=== PATIENT | male | born 1965 | race Caucasian/White ===

== ENCOUNTER 2019-06-01 11:57 | Observation (INO) ==
[2019-06-01] MEDS ORDERED: LIDOCAINE 1% 20 ML VIAL ONE (12:09)
[2019-06-01] MEDS ORDERED: hydrALAZINE 20 MG/1 ML VIAL IV PRN (12:10)
[2019-06-01] MEDS ORDERED: ZALEPLON 5 MG CAPSULE PO PRN (12:10)
[2019-06-01] MEDS ORDERED: diphenhydrAMINE CAP 25 MG CAPSULE PO PRN (12:10)
[2019-06-01] MEDS ORDERED: SIMETHICONE CHEW 125 MG TABLET PO PRN (12:10)
[2019-06-01] MEDS ORDERED: CALCIUM CARBONATE CHEW 500 MG TABLET PO PRN (12:10)
[2019-06-01] MEDS ORDERED: LACTULOSE 20 GM/30 ML UDCUP PO PRN (12:10)
[2019-06-01] MEDS ORDERED: BISACODYL 5 MG TABLET PO PRN (12:10)
[2019-06-01] MEDS ORDERED: POTASSIUM CHLORIDE 20 MEQ TABLET PO PRN (12:10)
[2019-06-01] MEDS ORDERED: ALUMINUM/MAGNES/SIMETH MAX STR 30 ML UDCUP PO PRN (12:10)
[2019-06-01] MEDS ORDERED: ONDANSETRON 4 MG/2 ML VIAL IV PRN (12:10)
[2019-06-01] MEDS ORDERED: NICOTINE 21 MG/24 HR PATCH TRANSDERM PRN (12:10)
[2019-06-01] MEDS ORDERED: guaiFENesin/DM ER 600-30 MG TABLET PO PRN (12:10)
[2019-06-01] MEDS ORDERED: MAGNESIUM SULF RIDER 4 GM in PREMIX 1 EACH IV PRN (12:10)
[2019-06-01] MEDS ORDERED: MORPHINE 4 MG/1 ML VIAL IV PRN (12:10)
[2019-06-01] MEDS ORDERED: MAGNESIUM SULF RIDER 2 GM in PREMIX 1 EACH IV PRN (12:10)
[2019-06-01] MEDS ORDERED: ACETAMINOPHEN 325 MG TABLET PO PRN (12:10)
[2019-06-01 12:16] LABS: Basophils # 0.1 10*3/uL (0.0-0.2); Basophils % 0.6 % (0.0-0.8); Eosinophils # 0.1 10*3/uL (0.0-0.87); Eosinophils % 0.8 % (0.00-10.9); Hematocrit 52.9 VOL% (42.0-52.0); Hemoglobin 17.7 GM/DL (14.0-18.0); Immature Granulocytes % 1.2 %; Immature Granulocytes Absolute 0.14 #; Lymphocytes % 8.7 % (21.2-54.2); Mean Corpuscular HGB Conc 33.5 GM/DL (32-36); Mean Corpuscular Volume 93.8 FL (87-102); Mean Platelet Volume 10.4 FL (9.6-12.0); Monocytes % 6.1 % (1.7-12.7); Neutrophils % 82.6 % (38.7-73.9); Platelet Count 210 T/CUMM (130-400); Red Blood Count 5.64 MC/CUMM (3.8-5.5); White Blood Count 11.5 T/CUMM (4-12)
[2019-06-01] MEDS ORDERED: HYDROmorphone 2 MG/1 ML VIAL ONE (12:22)
[2019-06-01] MEDS ORDERED: MIDAZOLAM 2 MG/2 ML VIAL ONE (12:23)
[2019-06-01 12:24] LABS: PT Patient Result 10.9 SECS (9.6-12.2)
[2019-06-01] MEDS ORDERED: ONDANSETRON 4 MG/2 ML VIAL ONE ×2 (12:26→13:44)
[2019-06-01] MEDS ORDERED: HEPARIN 5,000 UNIT/1 ML VIAL ONE (12:28)
[2019-06-01] MEDS ORDERED: TIROFIBAN 5,000 MCG/100 ML PREMIX IV ONE (12:33)
[2019-06-01 12:36] LABS: Albumin 3.8 G/DL (3.4-5.0); Bilirubin,Total 0.5 MG/DL (0.2-1.0); Calcium 8.6 MG/DL (8.5-10.1); Osmolality,Calculated 283.8 MOS/KG (273-304); Total Protein 7.1 G/DL (6.4-8.3)
[2019-06-01] MEDS ORDERED: GLUCAGON 1 MG VIAL IM PRN (12:37)
[2019-06-01] MEDS ORDERED: DEXTROSE 50% 25 GM/50 ML VIAL IV PRN (12:37)
[2019-06-01 12:39] LABS: Troponin I 0.296 NG/ML (0.00-0.045)
[2019-06-01] MEDS ORDERED: TIROFIBAN 5,000 MCG/100 ML PREMIX IV SCH (12:39)
[2019-06-01 12:46] LABS: Risk Ratio 4.36; VLDL CHOLESTEROL 21.8 MG/DL
[2019-06-01] MEDS ORDERED: TICAGRELOR 90 MG TABLET ONE (12:51)
[2019-06-01] MEDS ORDERED: LABETALOL 20 MG/4 ML SYRINGE IV ONE (12:54)
[2019-06-01] MEDS ORDERED: ALUM/MAG/SIMETH/LIDO VISC 1:1 30 ML BOTTLE PO ONE (13:59)
[2019-06-01] MEDS: ROSUVASTATIN 20 MG TABLET PO SCH (15:45)
[2019-06-01] MEDS: INSULIN LISPRO 100 UNIT/ML SUBCUT SCH ×2 (15:45→21:59)
[2019-06-01 18:33] LABS: CKMB % 7.2 %
[2019-06-01] MEDS: TICAGRELOR 90 MG TABLET PO SCH (20:34)
[2019-06-01] MEDS: clonazePAM 0.5 MG TABLET PO PRN (20:34)
[2019-06-01] MEDS: TERAZOSIN 2 MG CAPSULE PO SCH (20:35)
[2019-06-01] MEDS ORDERED: ATORVASTATIN 40 MG TABLET PO SCH (21:00)
[2019-06-01] MEDS ORDERED: ENOXAPARIN 40 MG/0.4 ML SYRINGE SUBCUT SCH (21:00)
[2019-06-01 21:20] LABS: CKMB % 7.4 %
[2019-06-01 21:23] LABS: Troponin I 7.58 NG/ML (0.00-0.045)
[2019-06-02 05:44] LABS: Basophils % 0.4 % (0.0-0.8); Eosinophils # 0.2 10*3/uL (0.0-0.87); Eosinophils % 2.1 % (0.00-10.9); Hematocrit 49.7 VOL% (42.0-52.0); Hemoglobin 16.3 GM/DL (14.0-18.0); Immature Granulocytes % 0.7 %; Immature Granulocytes Absolute 0.07 #; Lymphocytes # 1.5 10*3/uL (1.4-4.0); Lymphocytes % 15.3 % (21.2-54.2); Mean Corpuscular HGB Conc 32.8 GM/DL (32-36); Mean Corpuscular Volume 94.8 FL (87-102); Mean Platelet Volume 10.9 FL (9.6-12.0); Monocytes % 9.1 % (1.7-12.7); Neutrophils % 72.4 % (38.7-73.9); Platelet Count 191 T/CUMM (130-400); Red Blood Count 5.24 MC/CUMM (3.8-5.5); White Blood Count 9.5 T/CUMM (4-12)
[2019-06-02 06:29] LABS: CKMB % 7.8 %
[2019-06-02 06:35] LABS: Troponin I 7.22 NG/ML (0.00-0.045)
[2019-06-02 08:37] LABS: Calcium 8.2 MG/DL (8.5-10.1)
[2019-06-02] MEDS: buPROPion 75 MG TABLET PO SCH ×2 (08:52→21:09)
[2019-06-02] MEDS: TICAGRELOR 90 MG TABLET PO SCH ×2 (08:52→20:42)
[2019-06-02] MEDS: INSULIN LISPRO 100 UNIT/ML SUBCUT SCH ×4 (08:52→20:42)
[2019-06-02] MEDS: PANTOPRAZOLE 40 MG TABLET PO SCH (08:52)
[2019-06-02] MEDS: ASPIRIN EC 81 MG TABLET PO SCH (08:52)
[2019-06-02] MEDS ORDERED: lisinopriL 2.5 MG TABLET PO SCH ×2 (09:00)
[2019-06-02] MEDS ORDERED: carvediloL 3.125 MG TABLET PO SCH (09:00)
[2019-06-02] MEDS: ROSUVASTATIN 20 MG TABLET PO SCH (11:50)
[2019-06-02] MEDS: OLMESARTAN 5 MG TABLET PO SCH (13:17)
[2019-06-02] MEDS ORDERED: NICOTINE 21 MG/24 HR PATCH TRANSDERM PRN (18:50)
[2019-06-02] MEDS: carvediloL 6.25 MG TABLET PO SCH (20:42)
[2019-06-02] MEDS: TERAZOSIN 2 MG CAPSULE PO SCH (20:42)
[2019-06-02] MEDS: clonazePAM 0.5 MG TABLET PO PRN (20:42)
[2019-06-03 04:17] LABS: Basophils % 0.3 % (0.0-0.8); Eosinophils # 0.3 10*3/uL (0.0-0.87); Eosinophils % 2.5 % (0.00-10.9); Hematocrit 49.4 VOL% (42.0-52.0); Hemoglobin 16.3 GM/DL (14.0-18.0); Immature Granulocytes % 0.6 %; Immature Granulocytes Absolute 0.06 #; Lymphocytes # 1.5 10*3/uL (1.4-4.0); Lymphocytes % 15.4 % (21.2-54.2); Mean Corpuscular Volume 93.6 FL (87-102); Mean Platelet Volume 10.8 FL (9.6-12.0); Neutrophils % 70.2 % (38.7-73.9); Platelet Count 193 T/CUMM (130-400); Red Blood Count 5.28 MC/CUMM (3.8-5.5)
[2019-06-03 04:43] LABS: Calcium 8.7 MG/DL (8.5-10.1); Osmolality,Calculated 280.7 MOS/KG (273-304)
[2019-06-03 08:29] VITALS: BP 162/82
[2019-06-03] MEDS: TICAGRELOR 90 MG TABLET PO SCH (09:24)
[2019-06-03] MEDS: PANTOPRAZOLE 40 MG TABLET PO SCH (09:24)
[2019-06-03] MEDS: carvediloL 6.25 MG TABLET PO SCH (09:24)
[2019-06-03] MEDS: ROSUVASTATIN 20 MG TABLET PO SCH (09:24)
[2019-06-03] MEDS: OLMESARTAN 5 MG TABLET PO SCH (09:24)
[2019-06-03] MEDS: ASPIRIN EC 81 MG TABLET PO SCH (09:24)
[2019-06-03] MEDS: buPROPion 75 MG TABLET PO SCH (09:24)
[2019-06-03] MEDS: INSULIN LISPRO 100 UNIT/ML SUBCUT SCH (09:25)
== END 2019-06-03 10:14 | disposition home or self-care (01) ==
LOC: N.EDINP 11:57 → N.ED 11:57 → N.ICU 12:34 → N.TELES 06-02 20:19
PROVIDERS: ADMIT Internal Medicine Cardiovascular Disease; ATTEND Internal Medicine Cardiovascular Disease
PROC: CLCCHCL (ICD-10-PCS; 2019-06-01 12:45)